=== PATIENT | male | born 1990 | race Asian ===

== ENCOUNTER 2018-04-12 17:42 | Emergency (ER) | payer OTHER ==
[2018-04-12 17:47] VITALS: BP 128/86
[2018-04-12] MEDS ORDERED: CEPHALEXIN 500 MG CAP PO ONE (18:04)
--- NOTE | 2018-04-12 18:07 | EDPHY ---
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 He has a little bit of numbness distally. It was cleaned and then glue was applied at work. REVIEW OF SYSTEMS: Tetanus up-to-date PAST MEDICAL HISTORY: Negative Social history: Works in food industry General Appearance: Alert and conversant, cooperative. 1 cm right index finger laceration on the radial side at the D IP. Normal flexion and extension. Normal capillary refill. Patient has normal 2 point discrimination on the ulnar side but can't feel 2 point discrimination on the radial side. Emergency Department course/MDM: Procedure: Laceration repair. Verbal consent was obtained from the patient. The 1 cm laceration on the right index was anesthetized using 0.5% bupivacaine with out epinephrine. The wound was irrigated with standard emergency department protocol, draped and explored. There were no deep structures involved. No tendon injury was identified. No foreign body found. The wound was repaired with 5 0 Prolene. The wound repair was simple. Excellent hemostasis was obtained. Wound care instructions were discussed and the patient was warned regarding scarring. The procedure was performed by myself. Bulky dressing, oral Keflex, mandatory hand surgery referral for a digital nerve injury, neurapraxia versus transection Smoking Status: Never smoked Constitutional: Initial Vital Signs Temperature (C) 36.8 C 04/12/18 17:44 Heart Rate 72 04/12/18 17:44 Respiratory Rate 17 04/12/18 17:44 Blood Pressure 128/86 H 04/12/18 17:44 O2 Sat (%) 97 04/12/18 17:44 O2 Delivery Mode Room Air Allergies/Adverse Reactions: No Known Allergies Allergy (Unverified 04/12/18 17:44) Home Medications: Medication Instructions Recorded Cephalexin [Keflex] 500 mg PO QID #28 cap 04/12/18 MDM/Departure - MDM Medications Given: Discontinued Medications Cephalexin HCl (Keflex) 500 mg PO EDNOW ONE PRN Reason: Protocol Stop: 04/12/18 18:05 Last Admin: 04/12/18 18:10 Dose: 500 mg - Depart Disposition: Home, Routine, Self-Care Clinical Impression: Laceration of right index finger Qualifiers: Encounter type: initial encounter Damage to nail status: without damage Foreign body presence: without foreign body Qualified Code(s): S61.210A - Laceration without foreign body of right index finger without damage to nail, initial encounter Condition: Good Instructions: Laceration (ED) Additional Instructions: Wound Care Follow-Up: Removal of sutures in 10 days. Suture removal is complimentary in uncomplicated cases. Infection or abnormal findings would require reevaluation by the MD. In that case, you may be billed. The mandatory follow-up with Hand surgery this week, for possible digital nerve injury. Stand Alone Forms: Work Excuse Prescriptions: Cephalexin [Keflex] 500 mg PO QID #28 cap Referrals: Work Comp Ref/Restrictions [Outside] - As per Instructions Kati Ray MD [Medical Doctor] - As per Instructions
== END 2018-04-12 18:48 | disposition home or self-care (01) ==
PROC: 0HQFXZZ Repair Right Hand Skin, External Approach (ICD-10-PCS; principal; 2018-04-12)
DX: S61.210A Laceration without foreign body of right index finger without damage to nail, initial encounter (principal); W29.0XXA Contact with powered kitchen appliance, initial encounter; Y99.8 Other external cause status; Y93.89 Activity, other specified